=== PATIENT | male | born 1940 | race Caucasian/White ===

== ENCOUNTER 2025-01-02 11:25 | Emergency (ER) | payer MEDICARE, OTHER ==
[~2025-01-02] VITALS: Ht 177.8 cm; Wt 80.7 kg
[2025-01-02] MEDS ORDERED: BACTRIM DS TAB1 EACH PO (12:14)
[2025-01-02] MEDS ORDERED: TRIMETHOPRIM/SULFAMETHOXAZOLE 1 EA TAB PO ONE (12:15)
[2025-01-02 13:20] VITALS: BP 141/96
== END 2025-01-02 13:20 | disposition home or self-care (01) ==
LOC: ED 11:25
DX: L03.115 Cellulitis of right lower limb (principal); I10 Essential (primary) hypertension; J44.9 Chronic obstructive pulmonary disease, unspecified
CPT/HCPCS: 87205; 99283; A9270